=== PATIENT | male | born 1975 | race Caucasian/White ===

== ENCOUNTER 2017-09-30 15:33 | Emergency (ER) | payer BC ==
[2017-09-30 20:26] VITALS: BP 123/88
--- NOTE | 2017-10-01 02:01 | ED ---
Skin Complaint - HPI Summary HPI Summary: Patient is a 42-year-old male presenting to the ED with concern over a bilateral foot rash over the past week. He states he was in some water over a week ago when he developed the erythematous papules and vesicles. He was seen by his PCP in prescribed triamcinolone acetonide ointment 2 times daily. He states he has been applying the ointment however he noticed 2 small vesicles to the lower extremity above the ankles and was concerned this was spreading. Denies any evidence of infection or cellulitis. Denies any fevers, sweats, chills. Patient has been otherwise healthy and is not a diabetic. He is a nonsmoker. Denies any other rashes, but bites, known tick bites. Denies any pain, however endorses pruritus. - History of Current Complaint Chief Complaint: EDRashSkinAbscess Time Seen by Provider: 09/30/17 18:08 Stated Complaint: RT FOOT ISSUE Hx Obtained From: Patient Onset/Duration: Started Hours Ago Skin Exposure Onset/Duration: Hours Ago Timing: Constant Onset Severity: Mild Current Severity: Mild Pain Intensity: 0 Pain Scale Used: 0-10 Numeric Skin Location: Discrete - bilateral feet/lower ext Aggravating Symptom(s): Touch Alleviating Symptom(s): Nothing Associated Signs & Symptoms: Negative - Allergy/Home Medications Allergies/Adverse Reactions: Allergies Allergy/AdvReac Type Severity Reaction Status Date / Time Penicillins Allergy Hives Verified 09/30/17 15:45 PMH/Surg Hx/FS Hx/Imm Hx Previously Healthy: Yes - Immunization History Hx Pertussis Vaccination: No Immunizations Up to Date: Unable to Obtain/Confirm Infectious Disease History: No Infectious Disease History: Denies: Traveled Outside the [place] in Last 30 Days - Social History Occupation: Employed Full-time Lives: With Family Alcohol Use: Weekly Alcohol Amount: 2-3x week Hx Substance Use: No Substance Use Type: Reports: None Hx Tobacco Use: No Smoking Status (MU): Former Smoker Review of Systems Constitutional: Negative Negative: Fever, Chills, Fatigue, Skin Diaphoresis Negative: Palpitations, Chest Pain Negative: Shortness Of Breath, Cough Genitourinary: Negative Positive: no symptoms reported, see HPI Negative: Arthralgia, Myalgia Positive: Rash Neurological: Negative All Other Systems Reviewed And Are Negative: Yes Physical Exam Triage Information Reviewed: Yes Vital Signs On Initial Exam: Initial Vitals Temp Pulse Resp BP Pulse Ox 98.9 F 99 16 128/90 96 09/30/17 15:45 09/30/17 15:45 09/30/17 15:45 09/30/17 15:45 09/30/17 15:45 Vital Signs Reviewed: Yes Appearance: Positive: Well-Appearing, Well-Nourished Skin: Positive: Warm, Skin Color Reflects Adequate Perfusion, Other - bilateral maculopapular rash to the bilateral dorsum of the feet with small amount of vesicles present resembling a contact dermatitis Eyes: Positive: EOMI, MARITZA, Conjunctiva Clear Neck: Positive: Supple, No Lymphadenopathy Respiratory/Lung Sounds: Positive: Clear to Auscultation, Breath Sounds Present Cardiovascular: Positive: Pulses are Symmetrical in both Upper and Lower Extremities Musculoskeletal: Positive: Strength/ROM Intact Neurological: Positive: Speech Normal Psychiatric: Positive: Affect/Mood Appropriate Diagnostics - Vital Signs Vital Signs Temp Pulse Resp BP Pulse Ox 09/30/17 20:25 97.6 F 75 16 123/88 97 09/30/17 17:54 128/96 09/30/17 17:47 98 F 87 16 09/30/17 15:45 98.9 F 99 16 128/90 96 - Laboratory Lab Statement: Any lab studies that have been ordered have been reviewed, and results considered in the medical decision making process. Course/Dx - Course Course Of Treatment: On physical examination, there appears to be a maculopapular rash to the bilateral dorsum of the feet with small patch of vesicles which is approximately 3 cm and length. No signs of infection or erythema surrounding these areas to suggest a cellulitis. He has been taking triamcinolone acetonide cream without much relief. Endorses relief with hydroxyzine. He was concerned over to vesicles to his bilateral lower extremities and he feels this may have been spreading. He has been feeling otherwise well and denies any other pain at this time. He is placed on a steroid orally at this time and encouraged continuation of hydroxyzine and Benadryl at night. He will remain on the triamcinolone cream. This appears to be a contact dermatitis and has remained localized to the feet with to vesicles to the bilateral lower cavities. - Diagnoses Provider Diagnoses: Contact dermatitis Discharge - Sign-Out/Discharge Documenting (check all that apply): Patient Departure - Discharge Plan Condition: Stable Disposition: HOME Prescriptions: predniSONE [Prednisone 20 MG TAB] 20 mg PO SEE INSTRUCTIONS #15 tablet Patient Education Materials: Contact Dermatitis (ED) Referrals: Baldomero Stiles MD [Primary Care Provider] - Additional Instructions: Continue with triamcinalone cream twice daily Keep the area clean, dry and covered Prednisone as directed - start this tmw AM Take as directed in the AM only as this is a stimulant and can keep you up at night If you develop worsening redness or streaking up the leg - you need to be reseen - Billing Disposition and Condition Condition: STABLE Disposition: Home
== END 2017-09-30 20:25 | disposition home or self-care (01) ==
LOC: ED 15:33
DX: L25.9 Unspecified contact dermatitis, unspecified cause (principal); Z88.0 Allergy status to penicillin; Z87.891 Personal history of nicotine dependence
CPT/HCPCS: 99282